=== PATIENT | female | born 1990 | race Caucasian/White ===

== ENCOUNTER 2018-05-17 19:29 | Emergency (ER) | payer OTHER ==
[~2018-05-17] VITALS: Ht 177.8 cm; Wt 124.7 kg
[2018-05-17] MEDS ORDERED: PROAIR HFA8.5 GM INH (20:01)
[2018-05-17] MEDS ORDERED: ZPAK PO (20:01)
[2018-05-17 20:12] VITALS: BP 155/92
== END 2018-05-17 20:13 | disposition home or self-care (01) ==
LOC: M.ERS 19:29
DX: J06.9 Acute upper respiratory infection, unspecified (principal)